=== PATIENT | male | born 1965 | race Caucasian/White ===

== ENCOUNTER 2018-09-21 16:21 | Emergency (ER) | payer MEDICARE, MEDICAID ==
[~2018-09-21] VITALS: Ht 160 cm; Wt 58.0 kg
[~2018-09-21 16:21] MED LIST: HYDR1TAB
--- NOTE | 2018-09-21 16:38 | NUR ---
PT PRESENTED TO ED WITH BILATERAL LOWER EXTREMITY SWELLING AND COOLNESS TO BILATERAL FEET SINCE YESTERDAY. FAMILYT STATES HE IS HAVING DIFFICULTY WALKING. PT HAS CEREBRAL PALSY. PT PLACED ON BP, CARDIAC AND CONT. PULSE OXIMETER
--- NOTE | 2018-09-21 17:52 | NUR ---
US AT BEDSIDE.
[2018-09-21] MEDS ORDERED: SODIUM CHLORIDE 0.9% 1,000ML IVBOLUS ONE (18:00)
[2018-09-21 18:02] LABS: INTERNATIONAL NORMALIZED RATIO 1.01 (0.93-1.1); PROTHROMBIN TIME 10.7 Seconds (9.6-11.5)
[2018-09-21 18:03] LABS: ALANINE AMINOTRANSFERASE 28 U/L (12-78); ALBUMIN 3.5 g/dL (3.4-5.0); ANION GAP 5 mmol/L (5-15); CALCIUM 8.6 mg/dL (8.5-10.1); CHLORIDE 109 mmol/L (98-107); CREATININE 0.66 mg/dL (0.7-1.3)
[2018-09-21 18:05] LABS: ALKALINE PHOSPHATASE 94 U/L (45-117); BILIRUBIN,TOTAL 0.3 mg/dL (0.2-1.0); TOTAL PROTEIN 7.7 g/dL (6.4-8.2)
[2018-09-21 18:06] LABS: BASOPHILS # (AUTO) 0.01 x10^3/uL (0-0.1); BASOPHILS % (AUTO) 0 % (0-1); EOSINOPHILS # (AUTO) 0.08 x10^3/uL (0-0.4); EOSINOPHILS % (AUTO) 1 % (1-7); LYMPHOCYTES # (AUTO) 1.28 x10^3/uL (1-3.4); LYMPHOCYTES % (AUTO) 20 % (22-44); MD NO; MEAN CORPUSCULAR HEMOGLOBIN 28.9 pg (27.5-34.5); MEAN CORPUSCULAR HGB CONC 33.8 g/dL (33.2-36.2); MEAN CORPUSCULAR VOLUME 85.3 fL (81-97); MEAN PLATELET VOLUME 7.4 fL (7.4-10.4); MONOCYTES # (AUTO) 0.56 x10^3/uL (0.2-0.8); MONOCYTES % (AUTO) 9 % (2-9); NEUTROPHILS # (AUTO) 4.47 x10^3/uL (1.8-6.8); NEUTROPHILS % (AUTO) 70 % (42-75); PLATELET COUNT 294 x10^3/uL (130-400); RED BLOOD COUNT 5.18 x10^6/uL (4.38-5.82); RED CELL DISTRIBUTION WIDTH 14.3 % (9.4-14.8)
[2018-09-21 18:41] VITALS: BP 146/94
[2018-09-21] MEDS ORDERED: HYDR-3240 PO (18:43)
--- NOTE | 2018-09-21 18:43 | NUR ---
dr. soto at bedside doing us on bilateral feet.
--- NOTE | 2018-09-21 18:58 | NUR ---
REPORT GIVEN TO MARLIN HERNANDEZ
[2018-09-21] MEDS ORDERED: SODIUM CHLORIDE FLUSH 10ML SYR IVF ONE (19:00)
[2018-09-21] MEDS ORDERED: CEFAZOLIN PMX 1GM/50ML 50 ML IV ONE (19:00)
== END 2018-09-21 20:50 | disposition home or self-care (01) ==
LOC: ED 19:18
DX: M79.89 Other specified soft tissue disorders (principal); L03.115 Cellulitis of right lower limb
CPT/HCPCS: 36415; 71045; 80053; 83605; 85025; 85610; 85730; 87040; 93005; 93970; 96365; 99284; J0690; J7030